=== PATIENT | female | born 1985 | race Hispanic/Latino ===

== ENCOUNTER 2018-08-19 06:43 | Day surgery (SDC) | payer BC, OTHER ==
[2018-08-19] VITALS (15 sets, daily range): BP systolic 121–142; BP diastolic 63–87
[~2018-08-19] VITALS: Ht 160 cm; Wt 102.2 kg
[~2018-08-19 06:43] MED LIST: CALDOLOR 800MG+NS 250ML 250 ML IV SCH; CEFAZOLIN 3GM /D5W 100ML 100 ML IV SCH; DOCU-116 PO; ENOX100D4 SQ; HEPARIN SQ; IBUP-2077 PO; LACTATED RINGERS 1000ML 1,000 ML IV SCH; PREN-146 PO
[2018-08-19] MEDS ORDERED: PROGESTERONE PO (06:54)
[2018-08-19] MEDS ORDERED: ENOX40DI9 SQ (07:01)
[2018-08-19 07:06] LABS: BASOPHILS % (AUTO) 0.5 % (0.0-5.0); EOSINOPHILS % (AUTO) 1.1 % (0.0-8.0); HEMATOCRIT 41.2 % (36-48); MEAN CORPUSCULAR HEMOGLOBIN 28.4 pg (27.0-33.0); MEAN CORPUSCULAR HGB CONC 34.2 g/dL (32.0-36.0); MONOCYTES % (AUTO) 5.4 % (3.0-13.0); PLATELET COUNT (AUTO) 123 K/uL (130-400); RED BLOOD CELL COUNT(AUTO) 4.96 MIL/uL (4.00-5.50); RED CELL DISTRIBUTION WIDTH 12.9 % (11.0-15.5); WHITE BLOOD COUNT (AUTO) 7.7 K/uL (4.8-10.8)
[2018-08-19] MEDS ORDERED: CEFAZOLIN SODIUM 1 GM VIAL ONE (07:36)
[2018-08-19] MEDS ORDERED: LIDOCAINE PF 2% 5ML ABBOJECT ONE (07:57)
[2018-08-19] MEDS ORDERED: SUCCINYLCHOLINE 200MG/10ML SYR ONE (07:57)
[2018-08-19] MEDS ORDERED: ONDANSETRON HCL 4 MG/2 ML VIAL ONE (07:58)
[2018-08-19] MEDS ORDERED: FENTANYL CITRATE PF 50 MCG/1 ML 2ML VIAL ONE (07:58)
[2018-08-19] MEDS ORDERED: MIDAZOLAM HCL 1 MG/ML 2ML VIAL ONE (07:58)
[2018-08-19] MEDS ORDERED: PROPOFOL 10 MG/ML 20ML VIAL IV ONE ×2 (07:58→08:11)
[2018-08-19] MEDS ORDERED: OXYTOCIN 10 USP UNITS/ML ONE (08:10)
[2018-08-19] MEDS ORDERED: METHYLERGONOVINE MALEATE 0.2 MG/1 ML ML ONE (08:30)
== END 2018-08-19 10:28 | disposition home or self-care (01) ==
LOC: DAH 06:43
PROVIDERS: ATTEND Obstetrics & Gynecology
DX: O03.4 Incomplete spontaneous abortion without complication (principal); D68.51 Activated protein C resistance; Z98.890 Other specified postprocedural states; Z79.899 Other long term (current) drug therapy
CPT/HCPCS: 36415; 59812; 85025; 86850; 86900; 86901; 88305; A4218; A4351; A4510; A4600; J0330; J0690; J1741; J2001; J2210; J2250; J2405; J2590; J2704 ×2; J3010; J7030; J7120